=== PATIENT | female | born 1940 | race Caucasian/White ===

== ENCOUNTER 2020-06-18 10:35 | Emergency (ER) | payer MEDICARE, SELFPAY ==
--- NOTE | ~2020-06-18 | XR_ITS ---
EXAMINATION: XR chest 1V portable INDICATION: Weakness TECHNIQUE: Portable AP chest at 1126 hours COMPARISON: 12/27/2017 FINDINGS: There is stable cardiomegaly. Mild interstitial and airspace opacities are present. There i s no pleural effusion or pneumothorax. Median sternotomy wires and mediastinal surgical clips are see n, likely from prior coronary artery bypass grafting. IMPRESSION: 1. Cardiomegaly. 2. Minimal interstitial and airspace opacities which could reflect pulmonary edema and/or pneumonia. Reviewed, dictated and finalized at location A. PROCESSING OPERATOR IMPRESSION: 1. Cardiomegaly. 2. Minimal interstitial and airspace opacities which could reflect pulmonary ed harriet and/or pneumonia.
[2020-06-18 10:55] VITALS: BP 163/48; PULSE 67; RESP 18; TEMP 37.3; O2SAT 97
[2020-06-18 11:47] LABS: Basophils Percent Auto 0.3 % (0.2-1.2); Eosinophils Percent Auto 0.9 % (0-4.4); Hematocrit 30.6 % (37.0-47.0); Hemoglobin 10.1 g/dL (12.0-15.0); Immature Granulocyte Absolute 0.01 K/mm3 (0.00-0.031); Immature Granulocyte Percent A 0.3 % (0-0.5); Lymphocytes Absolute Auto 0.57 K/mm3 (0.9-3.2); Lymphocytes Percent Auto 16.5 % (18.3-44.2); Mean Corpuscular Hemoglobin 35.2 pg (26-34); Mean Corpuscular Volume 106.6 fl (80-100); Mean Platelet Volume 12.4 fl (7.4-10.4); Monocytes Absolute Auto 0.3 K/mm3 (0.1-0.6); Monocytes Percent Auto 9.5 % (2.6-8.5); Neutrophils Absolute Auto 2.5 K/mm3 (1.3-6.7); Neutrophils Percent Auto 72.5 % (45.5-73.1); Platelet Count Result 124 k/mm3 (150-375); Red Blood Count 2.87 M/mm3 (4.2-5.4); Red Cell Distribution Width 13.5 % (11.5-14.5); White Blood Count 3.5 K/mm3 (4.5-10.0)
--- NOTE | 2020-06-18 11:54 | PC.NURSE ---
Care coordination contacted at this time to help with patient per Dr. Farias request.
[2020-06-18 12:10] VITALS: BP 132/63; PULSE 62; RESP 14; O2SAT 97
[2020-06-18 12:11] VITALS: PULSE 63
[2020-06-18 12:11] LABS: Lactic Acid Reflex 0.9 mmol/L (0.7-2.1)
--- NOTE | 2020-06-18 12:11 | PC.NURSE ---
pt refused iv placement, stated that she did not want one. provider aware, nno
[2020-06-18 12:15] LABS: Alanine Aminotransferase 26 U/L (4-35); Albumin Level 3.4 g/dL (3.5-5.1); Alkaline Phosphatase 90 U/L (38-126); Anion Gap 10 mmol/L (8-16); Aspartate Amino Transferase 63 U/L (14-36); Bilirubin,Total 0.5 mg/dL (0.2-1.3); Blood Urea Nitrogen 15 mg/dL (7-17); Calcium 8.4 mg/dL (8.4-10.2); Carbon Dioxide 23 mmol/L (22-30); Chloride 104 mmol/L (98-107); Estimated CRCL calculation 54 ml/min; Estimated Glomerular Filt Rate 60; Glucose 104 mg/dL (65-105); Potassium 4.3 mmol/L (3.4-5.0); Sodium 137 mmol/L (137-145)
--- NOTE | 2020-06-18 12:39 | ED.GENADULT ---
HPI - General Adult General Chief complaint: Weakness Stated complaint: flu like symptoms History of Present Illness HPI narrative: Patient is an 80-year-old female who presents ER with generalized weakness. Patient reports that 1 week ago she was diagnosed with COVID-19. Through the course of her illness she is developed progressive weakness and fatigue. She has had intermittent fevers and chills. Mild exertional shortness of breath. And occasional cough. She was evaluated at another facility yesterday and discharged home. She reports since then she has become more weak where she cannot get around her home or maintain the ability to make herself food. Related Data Home Medications Medication Instructions Recorded Confirmed allopurinol 06/18/20 atorvastatin 06/18/20 doxazosin mg 06/18/20 furosemide 06/18/20 gabapentin 06/18/20 hydralazine 06/18/20 isosorbide mononitrate mg PO 06/18/20 nystatin [Nystop] TOPICAL 06/18/20 Allergies Allergy/AdvReac Type Severity Reaction Status Date / Time carvedilol Allergy Unknown Unknown Verified 06/18/20 12:34 simvastatin Allergy Unknown Unknown Verified 06/18/20 12:34 codeine AdvReac Intermediate Unknown Verified 06/18/20 12:34 morphine AdvReac Intermediate Unknown Verified 06/18/20 12:34 Review of Systems Review of Systems: All systems reviewed & are unremarkable except as noted in HPI and below Constitutional: Constitutional: Reports chills, Reports fatigue, Reports fever(s) and Reports weakness ENT: Denies nasal congestion and Denies sore throat Cardiovascular: Cardiovascular: Denies chest pain and Denies rapid heart rate Respiratory: Respiratory: Reports cough and Reports dyspnea PMFSH Past Medical History Medical History (Updated 06/18/20 @ 14:18 by Franck Farias MD) Coronary artery disease Hypercholesterolemia Hypertension Surgical History Surgical History (Updated 06/18/20 @ 12:42 by Franck Farias MD) History of left heart catheterization Hx of CABG Social History Social History Smoking status: Former smoker Gender identity (if verbalized by the patient): Female Exam Narrative: Exam Narrative: GENERAL: Well-appearing, well-nourished, and in no acute distress. HEAD: Normocephalic, atraumatic. ENT: Mucous membranes moist. CHEST: Clear to auscultation. No respiratory distress. HEART: Regular rate and rhythm. Normal peripheral pulses. ABDOMEN: Soft, nontender, nondistended. EXTREMITIES: Normal range of motion. Trace edema. SKIN: Warm, dry, no rash. NEURO: Alert and oriented x3. PSYCH: Normal mood and affect. Course Course Emergency Course: Patient typically walks with walker. She is been able to get up and move to use restroom. We have inquired about assisted placement. This seems to be quite cost prohibitive. We have contacted the family and they are somewhat the home who can help take care of this patient. Patient be discharged into the care of family. Patient without hypoxia but with questionable pneumonia on chest x-ray so we will starting her on antibiotics. Vital Signs Vital signs: Vital Signs Temperature 99.2 F 06/18/20 10:55 Pulse Rate 67 06/18/20 10:55 Respiratory Rate 18 06/18/20 10:55 Blood Pressure 163/48 H 06/18/20 10:55 Pulse Oximetry 97 06/18/20 10:55 Temperature 99.2 F 06/18/20 10:55 Pulse Rate 65 06/18/20 13:47 Respiratory Rate 17 06/18/20 13:47 Blood Pressure 144/88 H 06/18/20 13:47 Pulse Oximetry 96 06/18/20 13:47 Medical Decision Making Vital Signs Vital Signs: Vital Signs Temperature 99.2 F 06/18/20 10:55 Pulse Rate 67 06/18/20 10:55 Respiratory Rate 18 06/18/20 10:55 Blood Pressure 163/48 H 06/18/20 10:55 Pulse Oximetry 97 06/18/20 10:55 Temperature 99.2 F 06/18/20 10:55 Pulse Rate 65 06/18/20 13:47 Respiratory Rate 17 06/18/20 13:47 Blood Pressure 144/88 H 06/18/20 13:47 Pulse Oximetry 96 06/18/20 13:47
[2020-06-18 13:47] VITALS: BP 144/88; PULSE 65; RESP 17; O2SAT 96
--- NOTE | 2020-06-18 14:19 | PCCCNOTE ---
Spoke with pt about discharge. Pt requested custodial and agreed to [facility]. [facility] requests 3 months care to be paid prior to pt coming. Cost is $18,000. Pt states she can not afford. Called daughter Isabel [phone] and discussed plan. Daughter Padmini [phone] states pt's friend will come pick pt up and stay with pt. Pt informed.
== END 2020-06-18 14:54 | disposition home or self-care (01) ==
PROVIDERS: Emergency Provider Emergency Medicine; PCP Internal Medicine
DX: U07.1 COVID-19 (principal); J12.89 Other viral pneumonia; I25.10 Atherosclerotic heart disease of native coronary artery without angina pectoris; Z95.1 Presence of aortocoronary bypass graft; E78.00 Pure hypercholesterolemia, unspecified; I10 Essential (primary) hypertension; Z87.891 Personal history of nicotine dependence; I51.7 Cardiomegaly
CPT/HCPCS: 36415; 71045; 80053; 83605; 85025; 87040; 99283

== ENCOUNTER 2024-02-09 17:51 | Emergency (ER) | payer MEDICARE, SELFPAY ==
--- NOTE | ~2024-02-09 | XR_ITS ---
EXAMINATION: XR abdomen/kub 1V DATE: 02/09/2024 20:56 INDICATION: Abdominal pain. Constipation. TECHNIQUE: A supine view of the abdomen on 3 radiographs was obtained. COMPARISON: CT abdomen and pelvis 09/26/2014 FINDINGS: There are no dilated loops of bowel. There is a small volume of stool in the colon. Median sternotomy wires are noted. There is a chronic coil of wire in right upper quadrant. IMPRESSION: 1. Normal bowel gas pattern. Reviewed, dictated and finalized at location E.
[2024-02-09 18:10] VITALS: BP 158/38; PULSE 88; RESP 16; TEMP 36.4; O2SAT 97
[2024-02-09 19:22] VITALS: BP 166/71; PULSE 87; RESP 18; O2SAT 97
--- NOTE | 2024-02-09 19:46 | ED.GENADULT ---
HPI - General Adult General Chief complaint: Abdominal Pain Stated complaint: constipated, hemorroid pain Time Seen by Provider: 02/09/24 19:17 History of Present Illness HPI narrative: Patient 83-year-old female presents emergency department with chief complaint of constipation. Patient reports that for the last several days she has not been able have a bowel movement. The patient reports that she takes MiraLax and also takes Colace the patient states she took a dose of Colace and has not had a bowel movement patient reports she has discomfort in her rectum reports that she has had no vomiting reports that her lower abdomen feels full and uncomfortable. Related Data Home Medications Medication Instructions Recorded Confirmed allopurinol 300 mg tablet 06/18/20 atorvastatin 20 mg tablet 06/18/20 doxazosin 4 mg tablet mg 06/18/20 furosemide 40 mg tablet 06/18/20 gabapentin 300 mg capsule 06/18/20 hydralazine 50 mg tablet 06/18/20 isosorbide mononitrate 60 mg mg PO 06/18/20 tablet,extended release 24 hr nystatin 100,000 unit/gram topical topical 06/18/20 powder (Nystop) Allergies Allergy/AdvReac Type Severity Reaction Status Date / Time carvedilol Allergy Unknown Unknown Verified 06/18/20 12:34 simvastatin Allergy Unknown Unknown Verified 06/18/20 12:34 codeine AdvReac Intermediate Unknown Verified 06/18/20 12:34 morphine AdvReac Intermediate Unknown Verified 06/18/20 12:34 Review of Systems Review of Systems: A 10 system review of systems was completed on the patient and is negative except for what is stated in the HPI. Nursing and ancillary documentation was reviewed. [facility] Past Medical History Medical History Coronary artery disease Hypercholesterolemia Hypertension Surgical History Surgical History History of left heart catheterization Hx of CABG Social History Social History Smoking status: Former smoker Gender identity (if verbalized by the patient): Female Exam Narrative: GENERAL: Well-appearing, well-nourished, and in no acute distress. HEAD: Normocephalic, atraumatic. EYES: PERRLA and EOMI. ENT: Nares clear, no rhinorrhea or epistaxis. Mucous membranes moist. NECK: Supple. CHEST: Clear to auscultation. No respiratory distress. HEART: Regular rate and rhythm. No murmur heard. Normal peripheral pulses. ABDOMEN: Soft, minimal tenderness in the lower quadrant, nondistended, normal active bowel sounds. : Large amount of soft stool in the rectal vault trace guaiac positive no bright red blood EXTREMITIES: Normal range of motion. No edema. SKIN: Warm, dry, no rash. NEURO: No focal deficits. Alert and oriented x3. PSYCH: Normal mood and affect. Course Vital Signs Vital signs: Vital Signs Temperature 36.4 C 02/09/24 18:10 Pulse Rate 88 02/09/24 18:10 Respiratory Rate 16 02/09/24 18:10 Blood Pressure 158/38 H 02/09/24 18:10 Pulse Oximetry 97 02/09/24 18:10 Temperature 36.4 C 02/09/24 18:10 Pulse Rate 99 02/09/24 21:58 Respiratory Rate 20 02/09/24 21:58 Blood Pressure 157/59 H 02/09/24 21:58 Pulse Oximetry 98 02/09/24 21:58 Medical Decision Making MDM Narrative Medical decision making narrative: Differential diagnosis includes fecal impaction, constipation, bowel obstruction Plain film x-rays of the abdomen showed no evidence of bowel obstruction Laboratory studies were obtained showed hemoglobin of 10.0 electrolytes showed a creatinine 1.2 lactic acid was 0.9 liver enzymes within normal limits lipase was normal The patient was given an enema in the emergency department had a large bowel movement Patient discharged home on a regimen of MiraLax and Colace Vital Signs Vital Signs: Vital Signs Temperature 36.4 C 02/09/24
[2024-02-09 20:28] LABS: Basophils Percent Auto 0.9 % (0.2-1.2); Eosinophils Absolute Auto 0.3 K/mm3 (0-0.3); Eosinophils Percent Auto 6.6 % (0-4.4); Hematocrit 31.3 % (37.0-47.0); Lymphocytes Absolute Auto 0.83 K/mm3 (0.9-3.2); Lymphocytes Percent Auto 19.6 % (18.3-44.2); Mean Corpuscular HGB Conc 31.9 g/dl (32-36); Mean Corpuscular Hemoglobin 34.4 pg (26-34); Mean Corpuscular Volume 107.6 fl (80-100); Mean Platelet Volume 10.7 fl (7.4-10.4); Monocytes Absolute Auto 0.4 K/mm3 (0.1-0.6); Monocytes Percent Auto 8.5 % (2.6-8.5); Neutrophils Absolute Auto 2.7 K/mm3 (1.3-6.7); Neutrophils Percent Auto 64.4 % (45.5-73.1); Platelet Count Result 199 k/mm3 (150-375); Red Blood Count 2.91 M/mm3 (4.2-5.4); Red Cell Distribution Width 15.5 % (11.5-14.5); White Blood Count 4.2 K/mm3 (4.5-10.0)
[2024-02-09 20:39] LABS: Anisocytosis 1+; Macrocytosis 1+ (NORMAL); Platelet Estimate Adequate (Adequate); Schistocytes None Seen; Stomatocytes 1+
[2024-02-09 20:40] LABS: Lactic Acid Reflex 0.9 mmol/L (0.7-2.0)
[2024-02-09 20:47] LABS: Alanine Aminotransferase 12 U/L (6-35); Albumin Level 3.9 g/dL (3.5-5.1); Alkaline Phosphatase 121 U/L (38-126); Anion Gap 5 mmol/L (4-12); Aspartate Amino Transferase 23 U/L (14-36); Bilirubin,Total 0.5 mg/dL (0.2-1.3); Blood Urea Nitrogen 17 mg/dL (7-17); Calcium 9.1 mg/dL (8.4-10.2); Carbon Dioxide 26 mmol/L (22-30); Chloride 108 mmol/L (98-107); Estimated CRCL calculation 39 ml/min; Estimated Glomerular Filt Rate 43; Glucose 114 mg/dL (65-110); Lipase 25 U/L (23-300); Potassium 4.6 mmol/L (3.4-5.0); Sodium 139 mmol/L (137-145)
[2024-02-09 21:58] VITALS: BP 157/59; PULSE 99; RESP 20; O2SAT 98
[2024-02-09 22:42] VITALS: BP 156/60; PULSE 74; RESP 18; O2SAT 97
== END 2024-02-09 22:57 | disposition home or self-care (01) ==
PROVIDERS: Emergency Provider Emergency Medicine; PCP Internal Medicine
DX: K56.41 Fecal impaction (principal); I25.10 Atherosclerotic heart disease of native coronary artery without angina pectoris; I10 Essential (primary) hypertension; E78.00 Pure hypercholesterolemia, unspecified; Z87.891 Personal history of nicotine dependence; Z79.899 Other long term (current) drug therapy
CPT/HCPCS: 36415; 74018; 80053; 83605; 83690; 85025; 99283

== ENCOUNTER 2024-02-11 22:59 | Emergency (ER) | payer MEDICARE, SELFPAY ==
--- NOTE | ~2024-02-11 | CT_ITS ---
CT of the Abdomen and Pelvis: Indication: Abdominal pain Technique: 2.5 mm axial scans were obtained through the abdomen and pelvis following intravenous adm inistration of 100 cc of Omnipaque 350. Dose reduction technique was used on this scan by utilizing a utomated exposure control and iterative reconstruction technique. The dose-length product (DLP) was 2 795.70 mGy-cm. Findings: Scans through the lung bases are unremarkable. The liver, spleen, adrenals and kidneys are within normal limits. Gallbladder probably absent. There is a probable 2 cm cystic lesion at the pancreatic body, with underlying diffuse atrophic change of t he pancreas (axial image 72). There are atherosclerotic calcifications of the aorta. No lymphadenopa thy. There is a ventral low anterior hernia just left of midline, containing the proximal sigmoid colon an d mesenteric fat. There is an additional extremely large low right-sided ventral hernia, containing m id to distal sigmoid colon, and essentially the entire transverse and right colon as well as numerous small bowel loops and large amount of mesenteric fat. No definite bowel obstruction or bowel wall th ickening seen. Images through the pelvis were performed. Urinary bladder unremarkable. No pelvic mass seen. No ascit es. Impression: Extremely large low right-sided ventral hernia containing the entire right and transverse colon as we ll as numerous small bowel loops and mesenteric fat. No bowel obstruction or bowel thickening. Separate low ventral hernia just left of midline, containing the proximal sigmoid colon. 2 cm cystic lesion of the pancreatic body, likely low malignant potential lesion as such as serous cy stadenoma or IPMN or simple cyst. Consider follow-up MR to further evaluate. Reviewed, dictated and finalized at location M. Impression: Extremely large low right-sided ventral hernia containing the entire right and transverse colon as well as numerous small bowel loops and mesenteric fat. No b owel obstruction or bowel thickening. Separate low ventral hernia just left of midline, containing the proximal sigmo id colon. 2 cm cystic lesion of the pancreatic body, likely low malignant potential lesio n as such as serous cystadenoma or IPMN or simple cyst. Consider follow-up MR t o further evaluate.
[2024-02-11 22:56] VITALS: BP 176/56; PULSE 103; RESP 16; TEMP 36.8; O2SAT 98
--- NOTE | 2024-02-11 23:26 | ED.ABDPAIN ---
HPI - Abdominal Pain General Chief Complaint: Abdominal Pain <Sabrina North PA-C - Last Filed: 02/13/24 14:00> Stated Complaint: abd pain/constipation <NATHEN Shields Last Filed: 02/13/24 14:00> Time Seen by Provider: 02/11/24 23:06 <NATHEN Shields Last Filed: 02/13/24 14:00> Source: patient <NATHEN Shields Last Filed: 02/13/24 14:00> Mode of arrival: EMS <NATHEN Shields Last Filed: 02/13/24 14:00> Limitations: no limitations <NATHEN Shields Last Filed: 02/13/24 14:00> History of Present Illness HPI narrative: This is a 83 year old female that presents to the ER for abdominal pain and constipation. Ongoing over the last week. Reports she was seen here for this a couple of days prior and had an enema. She has had little relief. Is still uncomfortable and having trouble with bowel movements. Reports blood on the tissue when she wipes. Denies fever or vomiting. <NATHEN Shields Last Filed: 02/13/24 14:00> Related Data Home Medications: Home Medications Medication Instructions Recorded Confirmed allopurinol 300 mg tablet 06/18/20 atorvastatin 20 mg tablet 06/18/20 doxazosin 4 mg tablet mg 06/18/20 furosemide 40 mg tablet 06/18/20 gabapentin 300 mg capsule 06/18/20 hydralazine 50 mg tablet 06/18/20 isosorbide mononitrate 60 mg mg PO 06/18/20 tablet,extended release 24 hr nystatin 100,000 unit/gram topical topical 06/18/20 powder (Nystop) <NATHEN Shields Last Filed: 02/13/24 14:00> Allergies/Adverse Reactions: Allergies Allergy/AdvReac Type Severity Reaction Status Date / Time carvedilol Allergy Unknown Unknown Verified 02/11/24 23:01 simvastatin Allergy Unknown Unknown Verified 02/11/24 23:01 codeine AdvReac Intermediate Unknown Verified 02/11/24 23:01 morphine AdvReac Intermediate Unknown Verified 02/11/24 23:01 <Sabrina North PA-C - Last Filed: 02/13/24 14:00> Review of Systems Review of Systems: CONSTITUTIONAL: Denies fever GASTROINTESTINAL: Reports abdominal pain. Denies nausea, vomiting, or diarrhea. <NATHEN Shields Last Filed: 02/13/24 14:00> All systems reviewed & are unremarkable except as noted in HPI and below <Sabrina North PA-C - Last Filed: 02/13/24 14:00> PMFSH Past Medical History Medical History: Medical History Coronary artery disease Hypercholesterolemia Hypertension <NATHEN Shields Last Filed: 02/13/24 14:00> Surgical History Surgical History: Surgical History History of left heart catheterization Hx of CABG <Sabrina North PA-C - Last Filed: 02/13/24 14:00> Social History Social History: Social History Smoking status: Former smoker Gender identity (if verbalized by the patient): Female <NATHEN Shields Last Filed: 02/13/24 14:00> Exam Narrative: GENERAL: Elderly, well-nourished, and in no acute distress. HEAD: Normocephalic, atraumatic. EYES: EOMI. CHEST: Clear to auscultation. No respiratory distress. No wheezes rales or rhonchi HEART: Regular rate and rhythm. No murmur heard. Normal peripheral pulses. ABDOMEN: Soft, nondistended, normal active bowel sounds. Large ventral hernia over the right lateral abdomen, tender to palpation EXTREMITIES: Normal range of motion. No edema. SKIN: Warm, dry, no rash. NEURO: No focal deficits. Alert and oriented x3. PSYCH: Normal mood and affect RECTAL: External hemorrhoids present, no active bleeding. Hemoccult-positive <NATHEN Shields Last Filed: 02/13/24 14:00> Course Course Emergency Course: Patient updated on her workup thus far. Resting comfortably <Sabrina North PA-C - Last Filed: 02/13/24 14:00> THERMOSTAT MAKER/PA Physician Supervision LINA
[2024-02-11 23:44] LABS: Basophils Percent Auto 0.7 % (0.2-1.2); Eosinophils Absolute Auto 0.3 K/mm3 (0-0.3); Eosinophils Percent Auto 4.6 % (0-4.4); Hematocrit 29.8 % (37.0-47.0); Hemoglobin 9.6 g/dL (12.0-15.0); Immature Granulocyte Absolute 0.02 K/mm3 (0.00-0.031); Immature Granulocyte Percent A 0.4 % (0-0.5); Lymphocytes Absolute Auto 0.88 K/mm3 (0.9-3.2); Lymphocytes Percent Auto 15.4 % (18.3-44.2); Mean Corpuscular HGB Conc 32.2 g/dl (32-36); Mean Corpuscular Hemoglobin 33.8 pg (26-34); Mean Corpuscular Volume 104.9 fl (80-100); Mean Platelet Volume 10.8 fl (7.4-10.4); Monocytes Absolute Auto 0.5 K/mm3 (0.1-0.6); Monocytes Percent Auto 8.4 % (2.6-8.5); Neutrophils Percent Auto 70.5 % (45.5-73.1); Platelet Count Result 200 k/mm3 (150-375); Red Blood Count 2.84 M/mm3 (4.2-5.4); Red Cell Distribution Width 15.2 % (11.5-14.5); White Blood Count 5.7 K/mm3 (4.5-10.0)
[2024-02-11 23:58] LABS: Alanine Aminotransferase 11 U/L (6-35); Albumin Level 3.7 g/dL (3.5-5.1); Alkaline Phosphatase 117 U/L (38-126); Anion Gap 6 mmol/L (4-12); Aspartate Amino Transferase 22 U/L (14-36); Bilirubin,Total 0.4 mg/dL (0.2-1.3); Blood Urea Nitrogen 22 mg/dL (7-17); Calcium 9.1 mg/dL (8.4-10.2); Carbon Dioxide 25 mmol/L (22-30); Chloride 108 mmol/L (98-107); Estimated CRCL calculation 38 ml/min; Estimated Glomerular Filt Rate 43; Glucose 124 mg/dL (65-110); Lipase 23 U/L (23-300); Potassium 4.9 mmol/L (3.4-5.0); Sodium 139 mmol/L (137-145)
--- NOTE | 2024-02-12 00:09 | PC.NURSE ---
Pt to CT at this time.
[2024-02-12 01:03] VITALS: BP 166/76; PULSE 99; RESP 16; O2SAT 95
[2024-02-12 01:10] LABS: Appearance Urine Cloudy (Clear); Bacteria Urine Rare /hpf; Bilirubin Urine Negative (Negative); Blood Urine 2+ (Negative); Color Urine Yellow (Yellow); Glucose Urine UA Negative (Negative); Ketones Urine Negative (Negative); Leukocyte Esterase Ur 2+ LEU/UL (Negative); Nitrate Urine Negative (Negative); Non Pathogenic Casts 0-2; Protein Urine Trace mg/dL (Negative); Specific Grav Ur 1.022 (1.001-1.035); Squamous Epithelial Cell Urine None Seen /hpf (Few); Urobilinogen Urine 0.2 mg/dL (<2.0); WBC Urine >100 /hpf (0-3); pH Urine 5.5 (5.0-9.0)
[2024-02-12 01:18] LABS: Add Urine Microscopic? YES
[2024-02-12 03:06] VITALS: BP 178/60; PULSE 97; RESP 16; O2SAT 98
--- NOTE | 2024-02-12 05:23 | PC.NURSE ---
This RN made multiple attempts to call Isabel Orona and Goran Orona pt family w no success. Pt states she has no money for cab and pt does not qualify for ambulance transport home. Pt family made aware that pt would be awaiting ride home until they were able to return call or provide transport home. Will attempt again prior to shift change. Isabellillian Orona [phone] (daughter) Goran Orona [phone] (son in law)
[2024-02-12 05:26] VITALS: BP 157/64; PULSE 99; RESP 17; O2SAT 96
--- NOTE | 2024-02-12 06:49 | PC.NURSE ---
Isabel Orona called this RN and stated she would be on her way to get mother. Pt awaiting in triage.
== END 2024-02-12 06:49 | disposition home or self-care (01) ==
PROVIDERS: Emergency Provider Physician Assistant; PCP Internal Medicine
DX: K59.00 Constipation, unspecified (principal); N39.0 Urinary tract infection, site not specified; I25.10 Atherosclerotic heart disease of native coronary artery without angina pectoris; I10 Essential (primary) hypertension; E78.00 Pure hypercholesterolemia, unspecified; Z95.1 Presence of aortocoronary bypass graft; K43.9 Ventral hernia without obstruction or gangrene; K86.9 Disease of pancreas, unspecified; Z79.899 Other long term (current) drug therapy
CPT/HCPCS: 36415; 74177; 80053; 81001; 83690; 85025; 87077; 87086; 87088; 87186; 96365; 99284; J0696; Q9967